=== PATIENT | male | born 1935 | race American Indian/Alaskan Native ===

== ENCOUNTER 2019-06-30 12:10 | Emergency (ER) | payer MEDICARE, OTHER ==
[~2019-06-30] VITALS: Ht 157.5 cm; Wt 54.4 kg
[2019-06-30] MEDS ORDERED: GLUCOPHAGE500 MG PO (12:32)
--- NOTE | 2019-07-01 12:38 | EKG ---
[facility] [address] [facility] [place] [address] Signed Sinus tachycardia Voltage criteria for left ventricular hypertrophy Inferior infarct , age undetermined Anterolateral infarct , age undetermined Abnormal ECG No previous ECGs available Confirmed by ISMAEL PACE MD ([id number]) on 07/01/2019 12:38:50 PM Electronically Signed By: ISMAEL PACE MD 07/01/19 1238 PATIENT NAME: YADIEL WORLEY Electrocardiogram DATE OF : 33 PHYSICIAN: ISMAEL PACE MD REPORT #: [id number] REPORT IS CONFIDENTIAL AND NOT TO BE RELEASED WITHOUT AUTHORIZATION
== END 2019-06-30 17:39 | disposition home or self-care (01) ==
LOC: ED 12:10
DX: R41.82 Altered mental status, unspecified (principal); I95.9 Hypotension, unspecified; E11.9 Type 2 diabetes mellitus without complications; Z88.6 Allergy status to analgesic agent; Z79.84 Long term (current) use of oral hypoglycemic drugs
CPT/HCPCS: 36415; 71045; 80053; 81001; 84484; 85025; 93005; 93010; 99285-25; G0480